=== PATIENT | male | born 1990 | race African-American/Black ===

== ENCOUNTER 2017-01-21 12:18 | Emergency (ER) | payer MEDICAID, OTHER ==
[~2017-01-21] VITALS: Ht 167.6 cm; Wt 60.0 kg
[2017-01-21] MEDS ORDERED: ONDANSETRON 4MG ODT PO ONE (14:45)
[2017-01-21] MEDS ORDERED: MORPHINE SULFATE 10 MG/ML CPJ IM ONE (14:45)
[2017-01-21] MEDS ORDERED: KETOROLAC 60MG/2ML VIAL IM ONE (14:45)
[2017-01-21] MEDS ORDERED: ONDANSETRON HCL 4MG/2ML VIAL IV ONE (15:15)
[2017-01-21] MEDS ORDERED: MORPHINE SULFATE 4 MG/ML CPJ (NOT FOR IM USE) IV ONE (16:30)
[2017-01-21 17:54] VITALS: BP 136/79
== END 2017-01-21 18:00 | disposition home or self-care (01) ==
LOC: ER 12:31
DX: M54.30 Sciatica, unspecified side (principal)
CPT/HCPCS: 96372; 96374; 96375; 99284; J1885; J2270; J2405; Q0162